=== PATIENT | female | born 1955 | race Asian ===

== ENCOUNTER 2016-10-05 04:32 | Emergency (ER) | payer MEDICARE, MEDICAID ==
[~2016-10-05] VITALS: Ht 160 cm; Wt 54.4 kg
[2016-10-05] MEDS ORDERED: DOCUSATE SODIU100 MG ORAL (04:35)
[2016-10-05] MEDS ORDERED: SENSIPAR60 MG PO (04:35)
[2016-10-05] MEDS ORDERED: HYDRALAZINE HCL25 M1 ORAL (04:35)
[2016-10-05] MEDS ORDERED: LEVOTHYROXINE75 MCG ORAL (04:37)
[2016-10-05] MEDS ORDERED: NOVOLOG100 UNIT/3 SUBQ (04:37)
[2016-10-05] MEDS ORDERED: ATORVASTATIN CA10 MG ORAL (04:37)
--- NOTE | 2016-10-05 04:39 | Emergency Room Report ---
History of Present Illness General Chief Complaint: Multiple Trauma/Fall Source: Medical Record, EMS Present Illness HPI Is a 61-year-old female with history of schizophrenia and dementia. She is a senior living patient. She presents with chief complaint of head injury. She will off the bed and hit the ground or corner of a dresser. She has a hematoma to the left parietal area. There is small amount of blood. No other injury. She's not on blood thinner. Allergies: Coded Allergies: No Known Allergies (Unverified , 10/05/16) Patient History Past Medical History: see triage record, old chart reviewed, dementia, psych hx Past Surgical History: other Pertinent Family History: none Social History: Denies: smoking Now: No Immunizations: UTD Reviewed Nursing Documentation: PMH: Agreed, PSxH: Agreed Nursing Documentation-PMH Past Medical History: No History, Except For Hx Hypertension: Yes - Hyperlipidemia Hx Diabetes: Yes Hx Gastrointestinal Problems: Yes - GERD History Of Psychiatric Problem: Yes - Paranoid schizophrenia, Major depressive disorder Review of Systems Eye: Denies: blurred vision, eye pain ENT: Denies: ear pain, nose congestion, throat swelling Respiratory: Denies: cough, shortness of breath Cardiovascular: Denies: chest pain, palpitations Gastrointestinal: Denies: abdominal pain, diarrhea, nausea, vomiting Musculoskeletal: Denies: back pain, joint pain Skin: Denies: rash Neurological: Denies: headache, numbness Endocrine: Denies: increased thirst, increased urine Hematologic/Lymphatic: Denies: easy bruising All Other Systems: negative except mentioned in HPI Physical Exam Vital Signs Date Time Temp Pulse Resp B/P Pulse Ox O2 Delivery O2 Flow Rate FiO2 10/05/16 04:21 97.7 100 16 167/107 100 Room Air vitals with hypertension Sp02 EP Interpretation: reviewed, normal General Appearance: well appearing, no apparent distress, alert Head: normocephalic, other - 2 x 3 cm hematoma to the left parietal area. Small abrasion. Nothing to suture. Eyes: bilateral eye EOMI, bilateral eye PERRL ENT: hearing grossly normal, normal pharynx Neck: full range of motion, supple, no meningismus Respiratory: chest non-tender, lungs clear, normal breath sounds Cardiovascular #1: regular rate, rhythm, no murmur Gastrointestinal: normal bowel sounds, non tender, no mass, no organomegaly, no bruit, non-distended Musculoskeletal: back normal, normal range of motion Neurologic: other - Mental status at baseline per EMS. Psychiatric: mood/affect normal Skin: warm/dry Medical Decision Making Diagnostic Impression: Primary Impression: Head injury, acute Qualified Codes: S09.90XA - Unspecified injury of head, initial encounter Additional Impression: Scalp hematoma Qualified Codes: S00.03XA - Contusion of scalp, initial encounter ER Course Patient presents with acute head injury. No evidence of intracranial bleed or fracture. We'll discharge back to senior living. CT/MRI/US Diagnostic Results CT/MRI/US Diagnostic Results : Imaging Test Ordered: CT head Impression read by radiologist. Scalp hematoma. No fracture or intracranial bleed. Last Vital Signs Date Time Temp Pulse Resp B/P Pulse Ox O2 Delivery O2 Flow Rate FiO2 10/05/16 04:21 97.7 100 16 167/107 100 Room Air Status: improved Disposition: XFER SNF Condition: Stable Additional Instructions: Followup with your Dr. in 7 days. Return if worse. PANFILO EVANS M.D. Oct 05, 2016 04:39
[2016-10-05 04:40] VITALS: BP 167/107
[2016-10-05] MEDS ORDERED: MIRTAZAPINE15 MG ORAL (04:40)
[2016-10-05] MEDS ORDERED: OMEPRAZOLE40 M1 ORAL (04:40)
[2016-10-05] MEDS ORDERED: MULTI-VITAMIN-1 EACH PO (04:40)
[2016-10-05 05:26] VITALS: BP 160/91
[2016-10-05 06:20] VITALS: BP 173/91
--- NOTE | 2016-10-05 11:36 | Diagnostic Imaging Report ---
Indication: TRAUMA, fall Technique: spiral acquisitions obtained through the brain. Angled axial and coronal 5 x 5 mm slices were reconstructed. No IV contrast utilized. Radiation dose was minimized using automated exposure control Total dose length product 1453 mGycm. CTDIvol(s) 70 mGy Comparison: none FINDINGS: No acute hemorrhage or edema. No mass effect or midline shift. There is age-related enlargement of the ventricles and extra axial CSF spaces. There is periventricular deep white matter ischemic change. Normal woodard-white differentiation. Visualized orbits are unremarkable. There is minimal mucosal disease of the posterior right ethmoid and sphenoid sinuses.. Intact calvarium. There is a small left high parietal scalp hematoma. No underlying calvarial injury. Mastoids are clear. IMPRESSION: Chronic and age-related changes. Negative for acute intracranial bleed or mass effect This agrees with the preliminary interpretation provided overnight by [facility]. The CT scanner at [facility] is accredited by the [employer] and the scans are performed using protocols designed to limit radiation exposure to as low as reasonably achievable to attain images of sufficient resolution adequate for diagnostic evaluation
== END 2016-10-05 06:20 ==
LOC: EDBD 04:32 → EMR 04:41
DX: S09.90XA Unspecified injury of head, initial encounter (principal); S00.03XA Contusion of scalp, initial encounter; K21.9 Gastro-esophageal reflux disease without esophagitis; E11.9 Type 2 diabetes mellitus without complications; F32.9 Major depressive disorder, single episode, unspecified; E78.5 Hyperlipidemia, unspecified; I10 Essential (primary) hypertension; F20.0 Paranoid schizophrenia; F03.90 Unspecified dementia, unspecified severity, without behavioral disturbance, psychotic disturbance, mood disturbance, and anxiety; W06.XXXA Fall from bed, initial encounter; Y92.122 Bedroom in nursing home as the place of occurrence of the external cause; Y99.8 Other external cause status
CPT/HCPCS: 70450; 99284